=== PATIENT | female | born 1995 | race African-American/Black ===

== ENCOUNTER 2018-01-07 14:55 | Emergency (ER) | payer MEDICAID, SELFPAY ==
[~2018-01-07] VITALS: Ht 175.3 cm; Wt 113.6 kg
[2018-01-07 15:04] VITALS: BP 135/82
[2018-01-07 17:25] LABS: AMPHET/METH SCREEN,URINE NEGATIVE (NEGATIVE); BARBITURATE SCREEN, URINE NEGATIVE (NEGATIVE); BENZODIAZEPINES SCREEN,URINE NEGATIVE (NEGATIVE); CANNABINOID SCREEN,URINE POSITIVE (NEGATIVE); COCAINE SCREEN,URINE NEGATIVE (NEGATIVE); METHADONE SCREEN, URINE NEGATIVE (NEGATIVE); OPIATE SCREEN,URINE NEGATIVE (NEGATIVE); PHENCYCLIDINE SCREEN,URINE NEGATIVE (NEGATIVE)
== END 2018-01-07 16:55 | disposition home or self-care (01) ==
LOC: EMS 14:59
DX: F43.10 Post-traumatic stress disorder, unspecified (principal); F32.9 Major depressive disorder, single episode, unspecified; F17.210 Nicotine dependence, cigarettes, uncomplicated; F12.10 Cannabis abuse, uncomplicated
CPT/HCPCS: 99285

== ENCOUNTER 2018-04-26 15:58 | Inpatient (IN) | payer MEDICAID ==
[~2018-04-26] VITALS: Ht 170.2 cm; Wt 142.0 kg
[2018-04-26] MEDS ORDERED: HALOPERIDOL 5 MG TABLET PO PRN (19:00)
[2018-04-26] MEDS ORDERED: ZOLPIDEM TARTRATE 10 MG TABLET PO PRN (19:00)
[2018-04-26] MEDS ORDERED: LORazepam 2 MG TABLET PO PRN (19:00)
[2018-04-27 00:18] VITALS: BP_SYST 142; BP_DIAS 64; BP_DIAS 66
[2018-04-27 00:28] VITALS: BP 142/66
[2018-04-27 00:34] VITALS: BP 142/66
[2018-04-27] MEDS ORDERED: BACITRACIN 28.4 GM OINTMENT TP PRN (14:00)
[2018-04-27] MEDS ORDERED: LOPERAMIDE HCL 2 MG CAPSULE PO PRN (14:00)
[2018-04-27] MEDS ORDERED: MAGNESIUM HYDROXIDE SUSPENSION 30 ML UDCUP PO PRN (14:00)
[2018-04-27] MEDS ORDERED: PETROLATUM,WHITE 71 GM JELLY TP PRN (14:00)
[2018-04-27] MEDS ORDERED: BENZOCAINE/MENTHOL LOZENGE MM PRN (14:00)
[2018-04-27] MEDS ORDERED: CloNIDine HCL 0.1 MG TABLET PO PRN (14:00)
[2018-04-27] MEDS ORDERED: ALBUTEROL SULFATE HFA 90 MCG/PUFF 8 GM INHALER IH PRN (14:00)
[2018-04-27] MEDS ORDERED: IBUPROFEN 600 MG TABLET PO PRN (14:00)
[2018-04-27] MEDS ORDERED: ONDANSETRON HCL 4 MG TABLET PO PRN (14:00)
[2018-04-27] MEDS ORDERED: ACETAMINOPHEN 325 MG TABLET PO PRN (14:00)
[2018-04-27] MEDS ORDERED: MAG HYDROX/AL HYDROX/SIMETH ES 30 ML SUSPENSION UDCUP PO PRN (14:00)
[2018-04-27 16:04] VITALS: BP 104/64
[2018-04-28 06:40] VITALS: BP 100/60
[2018-04-28 10:10] VITALS: BP 105/58
[2018-04-28 16:11] VITALS: BP 106/76
[2018-04-29 06:36] VITALS: BP 106/72
== END 2018-04-29 15:00 | disposition home or self-care (01) | DRG 751 ==
LOC: EMS 15:59 → B3A 21:19
DX: F33.2 Major depressive disorder, recurrent severe without psychotic features (principal); R45.851 Suicidal ideations; Z68.42 Body mass index [BMI] 45.0-49.9, adult; E66.01 Morbid (severe) obesity due to excess calories; F41.9 Anxiety disorder, unspecified; G47.00 Insomnia, unspecified; R03.0 Elevated blood-pressure reading, without diagnosis of hypertension; Z59.0 Homelessness; F17.210 Nicotine dependence, cigarettes, uncomplicated; F12.10 Cannabis abuse, uncomplicated; Z72.89 Other problems related to lifestyle; Z56.0 Unemployment, unspecified; Z71.41 Alcohol abuse counseling and surveillance of alcoholic; Z71.6 Tobacco abuse counseling; Z71.51 Drug abuse counseling and surveillance of drug abuser

== ENCOUNTER 2018-04-28 10:35 | Emergency (ER) | payer MEDICAID ==
[~2018-04-28] VITALS: Ht 170.2 cm; Wt 95.5 kg
[2018-04-28] MEDS ORDERED: SODIUM CHLORIDE 0.9% 1,000 ML IV ONE (11:15)
[2018-04-28 11:29] LABS: BASOPHILS % (AUTO) 0.4 % (0.0-2.0); EOSINOPHILS % (AUTO) 0.6 % (1.0-6.0); HEMATOCRIT 35.8 % (36-46); HEMOGLOBIN 12.6 g/dL (12.0-16.0); LYMPHOCYTES % (AUTO) 25.7 % (22.0-44.0); MEAN CORPUSCULAR HEMOGLOBIN 31.4 pg (26.0-34.0); MEAN CORPUSCULAR HGB CONC 35.1 G/dL (31.0-37.0); MEAN CORPUSCULAR VOLUME 89 fL (80-100); MONOCYTES # (AUTO) 0.6 K/uL (0.1-1.0); MONOCYTES % (AUTO) 7.7 % (2.0-9.0); NEUTROPHILS # (AUTO) 5.1 K/uL (1.8-7.7); NEUTROPHILS % (AUTO) 65.6 % (40.0-70.0); PLATELET COUNT (AUTO) 312 K/uL (150-450); RED CELL DISTRIBUTION WIDTH 12.7 % (11.5-14.5)
[2018-04-28 11:35] LABS: ANION GAP 3 mmol/L (8-16); CALCIUM, TOTAL 8.5 mg/dL (8.8-10.5); CARBON DIOXIDE 28 mmol/L (22-29); CHLORIDE 105 mmol/L (98-107); CREATININE 0.75 mg/dL (0.60-1.30); GLOMERULAR FILTR. RATE CALC > 60 mL/min (>60); GLUCOSE,RANDOM 90 mg/dL (70-110); POTASSIUM 3.5 mmol/L (3.5-5.1); SODIUM SERUM 136 mmol/L (136-145); UREA NITROGEN, BLOOD 13 mg/dL (7-18)
[2018-04-28 11:40] LABS: ALANINE AMINOTRANSFERASE 21 U/L (12-78); ALBUMIN 3.5 g/dL (3.4-5.0); ALKALINE PHOSPHATASE 72 U/L (46-116); ASPARTATE AMINOTRANSFERASE 15 U/L (15-37); BILIRUBIN,TOTAL 0.3 mg/dL (0.1-1.0); TOTAL PROTEIN, SERUM 7.4 g/dL (6.4-8.2)
[2018-04-28 14:15] LABS: BILIRUBIN,URINE NEGATIVE (NEGATIVE); GLUCOSE, URINE (UA) NEGATIVE (NEGATIVE); KETONES,URINE 15 mg/dL (NEGATIVE); LEUKOCYTE ESTERASE ,URINE NEGATIVE (NEGATIVE); NITRATE,URINE NEGATIVE (NEGATIVE)
[2018-04-28 14:18] LABS: AMPHET/METH SCREEN,URINE NEGATIVE (NEGATIVE); BARBITURATE SCREEN, URINE NEGATIVE (NEGATIVE); BENZODIAZEPINES SCREEN,URINE NEGATIVE (NEGATIVE); CANNABINOID SCREEN,URINE POSITIVE (NEGATIVE); COCAINE SCREEN,URINE NEGATIVE (NEGATIVE); METHADONE SCREEN, URINE NEGATIVE (NEGATIVE); OPIATE SCREEN,URINE NEGATIVE (NEGATIVE)
[2018-04-28 14:20] LABS: PHENCYCLIDINE SCREEN,URINE NEGATIVE (NEGATIVE)
[2018-04-28 14:24] VITALS: BP 100/62
[2018-04-28 14:35] LABS: APPEARANCE,URINE CLEAR (CLEAR); PROTEIN,URINE NEGATIVE (NEGATIVE)
[2018-04-28 14:36] LABS: BACTERIA,URINE None Seen /HPF (None Seen); OCCULT BLOOD,URINE SMALL (NEGATIVE); WBC,URINE None Seen /HPF (0-5)
== END 2018-04-28 16:46 | disposition home or self-care (01) ==
LOC: EMS 10:37
DX: I95.9 Hypotension, unspecified (principal); F32.9 Major depressive disorder, single episode, unspecified; F12.90 Cannabis use, unspecified, uncomplicated; F17.210 Nicotine dependence, cigarettes, uncomplicated
CPT/HCPCS: 99284; 99406

== ENCOUNTER 2020-10-07 13:44 | Emergency (ER) | payer MEDICAID ==
[~2020-10-07] VITALS: Ht 170.2 cm; Wt 118.2 kg
[2020-10-07 14:21] VITALS: BP 154/88
== END 2020-10-07 15:43 | disposition left against medical advice (07) ==
LOC: EMS 14:26
DX: M79.646 Pain in unspecified finger(s) (principal); Z53.21 Procedure and treatment not carried out due to patient leaving prior to being seen by health care provider